=== PATIENT | female | born 1930 ===

== ENCOUNTER → 2017-01-16 | Outpatient (CLI) | payer MEDICARE, OTHER ==
--- NOTE | 2017-01-16 11:26 | PN ---
Date/Time of Note Date/Time of Note DATE: 01/16/17 TIME: 11:24 Assessment/Plan VTE Prophylaxis VTE Prophylaxis Intervention: ambulation, SCD's, other Assessment/Plan Assessment/Plan Assessment: 10 days status post right bipolar hemiarthroplasty Plan: The nia were removed today, and Steri-Strips were applied. She is to continue physical therapy at the [facility] and ambulate with a front wheeled walker at all times. Additionally she is to continue aspirin 325 mg twice daily for DVT prophylaxis. We will see her back in 4 weeks for repeat evaluation. She is to call the office in the meantime if she has any concerns. Subjective 24 Hr Interval Summary Free Text/Dictation The patient presents today for her first postoperative evaluation on her right hip. She is 9 days status post right bipolar arthroplasty for right femoral neck fracture. She is at the [facility] facility. She is having some mild pain to the hip but is making satisfactory progress with physical therapy. She denies any fevers or chills. She is using a wheelchair and frontwheel walker to ambulate. She presents today for her first postoperative evaluation. Exam/Review of Systems Exam On exam today, she is alert oriented 4, and in no acute distress. Exam of the incision demonstrates it to be clean, dry, and intact. There is some mild ecchymosis from the nia. There is no erythema, warmth, pus, or drainage noted. There is no significant soft tissue swelling. Compartments are soft. Homans sign is negative. She is neurovascular intact distally. Imaging: X-rays of the right hip were obtained at outside facility and reviewed by me today. They demonstrate the prosthesis to be in good anatomic alignment with no fractures or dislocations identified SLIM BOLES PA-C Jan 16, 2017 11:26
== END | disposition home or self-care (01) ==
LOC: HKI 10:23
PROVIDERS: ATTEND Orthopaedic Surgery
DX: Z47.1 Aftercare following joint replacement surgery (principal); Z96.641 Presence of right artificial hip joint